=== PATIENT | male | born 1970 | race Caucasian/White ===

== ENCOUNTER 2021-01-08 08:57 | Emergency (ER) | payer SELFPAY ==
[~2021-01-08] VITALS: Ht 157.5 cm; Wt 80.0 kg
[2021-01-08 10:00] VITALS: BP 151/96
[2021-01-08] MEDS ORDERED: FLUORESCEIN SODIUM 1MG/STRIP BOTHEYE ONE (10:00)
[2021-01-08] MEDS ORDERED: TETRACAINE 0.5% OPHTH DROPS 4ML BOTHEYE ONE (10:00)
[2021-01-08] MEDS ORDERED: IBUPROFEN 600MG TABLET PO ONE (10:00)
[2021-01-08] MEDS ORDERED: OFLO5DRO3 EACHEYE (10:17)
[2021-01-08] MEDS ORDERED: ACYC200C MT (10:17)
[2021-01-08] MEDS ORDERED: IBUP-2028 MT (10:17)
== END 2021-01-08 10:41 | disposition home or self-care (01) ==
LOC: ER 08:57
DX: H10.9 Unspecified conjunctivitis (principal); B34.9 Viral infection, unspecified; K12.30 Oral mucositis (ulcerative), unspecified; Z86.16 Personal history of COVID-19
CPT/HCPCS: 99284

== ENCOUNTER 2021-01-10 11:45 | Emergency (ER) | payer MEDICAID ==
[~2021-01-10] VITALS: Ht 162.6 cm; Wt 80.0 kg
[~2021-01-10 11:45] MED LIST: ACYC200C MT; IBUP-2028 MT; OFLO5DRO3 EACHEYE
[2021-01-10] MEDS ORDERED: DEXT 5%/LACTATED RINGERS 1,000 ML IV ONE ×2 (14:15→17:30)
[2021-01-10] MEDS ORDERED: LIDOCAINE HCL 1% 20ML VIAL (Pyxis) INJ INFIL ONE (14:15)
[2021-01-10] MEDS ORDERED: DEXAMETHASONE 10 MG/ML VIAL IM ONE (14:15)
[2021-01-10] MEDS ORDERED: CEFTRIAXONE SODIUM 1 G/VIAL IM ONE (14:15)
[2021-01-10] MEDS ORDERED: CEFTRIAXONE 1 G PREMIX 50 ML IV ONE (14:45)
[2021-01-10] MEDS ORDERED: DEXAMETHASONE 10 MG/ML VIAL IV ONE (14:45)
[2021-01-10 17:22] LABS: HEMATOCRIT 45.2 % (42.0-52.0); HEMOGLOBIN 15.2 g/dL (14.0-18.0); MEAN CORPUSCULAR HEMOGLOBIN 29.4 pg (28.0-32.0); MEAN CORPUSCULAR VOLUME 87.7 fL (80.0-94.0); PLATELET 163 x1000/uL (130-400); RED BLOOD CELL COUNT 5.15 mill/uL (4.7-6.1); RED CELL DISTRIBUTION WIDTH 14.2 % (11.6-14.6)
[2021-01-10 17:24] LABS: CHLORIDE 102 mEq/L (98-107)
[2021-01-10] MEDS ORDERED: MORPHINE SULFATE 2 MG/ML CPJ (NOT FOR IM USE) IV ONE (17:30)
[2021-01-10] MEDS ORDERED: DEXT 5%/0.9% NACL 1,000 ML IV ONE (18:00)
[2021-01-10] MEDS ORDERED: DOXY100C2 MT (18:58)
[2021-01-10] MEDS ORDERED: GUAI5SYR3 MT (18:58)
[2021-01-10] MEDS ORDERED: MED4 MT (18:58)
[2021-01-10 19:15] VITALS: BP 127/86
== END 2021-01-10 19:18 | disposition home or self-care (01) ==
LOC: ER 11:45
DX: B08.5 Enteroviral vesicular pharyngitis (principal); R59.0 Localized enlarged lymph nodes
CPT/HCPCS: 36415; 71045; 71250; 80053; 85027; 96361; 96365; 96375; 99285; J0696; J1100; J2270; J7042; J7121; Z7610